=== PATIENT | male | born 1975 | race Caucasian/White ===

== ENCOUNTER 2021-11-07 05:02 | Emergency (ER) | payer OTHER ==
[~2021-11-07] VITALS: Ht 175.3 cm; Wt 104.3 kg
--- NOTE | 2021-11-07 05:36 | NUR ---
PT BIBWIFE FROM HOME C/O ALLERGIC REACTION. GEN BODY RASHES NOTED. NO SOB SPO2 98% R/A. CONNECTED PT TO POX AND MONITOR.
[2021-11-07] MEDS ORDERED: DEXAMETHASONE SOD PHOSPHATE 10 MG/ML VIAL ONE (06:17)
[2021-11-07] MEDS ORDERED: diphenhydrAMINE HCL 50 MG/ML VIAL ONE (06:17)
[2021-11-07] MEDS ORDERED: diphenhydrAMINE HCL 50 MG/ML VIAL IM ONE (06:30)
[2021-11-07] MEDS ORDERED: DEXAMETHASONE SOD PHOSPHATE 4 MG/ML VIAL IM ONE (06:30)
[2021-11-07] MEDS ORDERED: CETI-90 PO (06:39)
--- NOTE | 2021-11-07 06:42 | NUR ---
Patient discharged to home in stable condition. RX Written and verbal after care instructions given. Patient verbalizes understanding of instruction. PT ambulatory with a steady gait
[2021-11-07 06:43] VITALS: BP 189/120
== END 2021-11-07 06:44 | disposition home or self-care (01) ==
LOC: ER 05:06
DX: L50.9 Urticaria, unspecified (principal); I10 Essential (primary) hypertension; F17.200 Nicotine dependence, unspecified, uncomplicated; Z79.899 Other long term (current) drug therapy
CPT/HCPCS: 96372 ×2; 99284; J1100; J1200